=== PATIENT | female | born 1995 | race Hispanic/Latino ===

== ENCOUNTER 2023-08-08 10:32 | Emergency (ER) | payer OTHER ==
[~2023-08-08] VITALS: Ht 154.9 cm; Wt 113.4 kg
[~2023-08-08 10:32] MED LIST: CIPR-278 PO; HYDR-4060 PO; LOPE2CAP PO; ONDA4TAB10 PO
[2023-08-08 11:43] LABS: CREATININE 0.9 mg/dL (0.5-1.5); POTASSIUM 4.1 mmol/L (3.5-5.1)
[2023-08-08 11:45] LABS: BASOPHILS # (AUTO) 0.03 K/uL (0.00-0.20); BASOPHILS % (AUTO) 0.4 % (0.0-5.0); EOSINOPHILS # (AUTO) 0.21 K/uL (0.00-0.70); EOSINOPHILS % (AUTO) 2.5 % (0.0-8.0); HEMATOCRIT 40.9 % (36-48); IMMATURE GRANULOCYTE ABSOLUTE 0.03 K/uL (0-1); LYMPHOCYTES # (AUTO) 1.9 K/uL (1.0-4.8); LYMPHOCYTES % (AUTO) 22.5 % (21.0-51.0); MEAN CORPUSCULAR HEMOGLOBIN 29.2 pg (27.0-33.0); MEAN CORPUSCULAR HGB CONC 33.3 g/dL (32.0-36.0); MEAN CORPUSCULAR VOLUME 87.8 fL (79-99); MONOCYTES # (AUTO) 0.5 K/uL (0.1-1.0); MONOCYTES % (AUTO) 5.7 % (3.0-13.0); NEUTROPHILS # (AUTO) 5.9 K/uL (1.8-7.7); NEUTROPHILS % (AUTO) 68.5 % (40.0-77.0); PLATELET COUNT (AUTO) 227 K/uL (130-400); RED BLOOD CELL COUNT(AUTO) 4.66 MIL/uL (4.00-5.50); RED CELL DISTRIBUTION WIDTH 13.4 % (11.0-15.5); WHITE BLOOD COUNT (AUTO) 8.6 K/uL (4.8-10.8)
[2023-08-08 11:47] LABS: ALBUMIN 3.6 g/dL (3.5-5.0); BILIRUBIN,TOTAL 0.4 mg/dL (0.2-1.0); TOTAL PROTEIN, SERUM 7.5 g/dL (6.0-8.3)
[2023-08-08] MEDS: METOCLOPRAMIDE 10 MG TABLET PO ONE (11:48)
[2023-08-08 12:17] LABS: APPEARANCE,URINE CLEAR (CLEAR); BILIRUBIN,URINE NEGATIVE (NEGATIVE); COLOR,URINE YELLOW (YELLOW); GLUCOSE, URINE (UA) NEGATIVE (NEGATIVE); KETONES,URINE NEGATIVE (NEGATIVE); LEUKOCYTE ESTERASE ,URINE NEGATIVE Leu/uL (NEGATIVE); NITRATE,URINE NEGATIVE (NEGATIVE); OCCULT BLOOD,URINE NEGATIVE (NEGATIVE); PROTEIN,URINE 10 mg/dL (NEGATIVE)
[2023-08-08 12:23] LABS: HCG,QUALITATIVE URINE NEGATIVE (NEGATIVE)
[2023-08-08 12:28] LABS: ADD UA MICROSCOPIC YES
[2023-08-08 12:30] LABS: MUCUS,URINE FEW LPF (None Seen); SQUAMOUS EPITHELIAL CELL,UR RARE /HPF (0-2)
[2023-08-08] MEDS: KETOROLAC 60 MG VIAL (30MG/ML) IM ONE (13:46)
[2023-08-08 14:41] VITALS: BP 133/78; PULSE 78; RESP 18; O2SAT 98
== END 2023-08-08 14:42 | disposition home or self-care (01) ==
LOC: EDH 10:32
DX: K52.9 Noninfective gastroenteritis and colitis, unspecified (principal); J45.909 Unspecified asthma, uncomplicated; F41.9 Anxiety disorder, unspecified; Z90.49 Acquired absence of other specified parts of digestive tract
CPT/HCPCS: 99283; 80053; 83690; 85025; 81001; 81025; 36415; 96372; J1885

== ENCOUNTER 2024-04-26 12:11 | Emergency (ER) | payer OTHER ==
[~2024-04-26] VITALS: Ht 165.1 cm; Wt 90.7 kg
[~2024-04-26 12:11] MED LIST changes: +ONDA-243 PO; -ONDA4TAB10 PO
[2024-04-26 12:27] VITALS: TEMP 98.5
--- NOTE | 2024-04-26 12:31 | ERN ---
ED Note History of Present Illness Stated Complaint: HYPOTENSION Chief Complaint: Hypotension Time Seen by MD: 12:13 Dictation: PATIENT IS A 29-YEAR-OLD FEMALE COMING IN TODAY VIA EMS FROM A LOCAL PLASMA CENTER. SHE WAS DONATING PLASMA WHEN SHE HAD A NEAR SYNCOPAL EPISODE AND FELT WEAK, THE DOCUMENT CONTROLLER ATTEMPTED TO GIVE HER BLOOD BACK HOWEVER THE IV INFILTRATED AND THEY COULD NOT RESTART THE IV. EMS WAS CALLED CURRENTLY SHE IS ALERT AND ORIENTED X4 SPEECH IS CLEAR STATES SHE HAS A MILD NAUSEA., NO HISTORY OF PANIC ATTACKS ANXIETY. SHE IS A DIABETIC, BLOOD SUGAR WAS 228 ACCORDING TO EMS ON ARRIVAL [facility] IS 0 ON A APPROACH. Allergies: Coded Allergies: clonazepam (Unverified Allergy, Unknown, 07/05/22) enoxaparin (Unverified Allergy, Unknown, 07/05/22) ranitidine (Unverified Allergy, Unknown, 07/05/22) Home Meds Active Scripts Hydrocodone/Acetaminophen (Hydrocodon-Acetaminophen 5-325) 1 Each Tablet, 1 EACH PO Q6H for pain, #12 TAB 0 Refills Prov:MELANY ARELLANO MD 07/05/22 Ondansetron (Ondansetron Odt) 4 Mg Tab.rapdis, 4 MG PO Q6HPRN PRN for nausea, #16 TAB 0 Refills Prov:MELANY ARELLANO MD 07/05/22 Loperamide HCl (Loperamide) 2 Mg Capsule, 2 MG PO 5XDAY for diarrhea, #10 CAP 0 Refills Take 2 tablets initially and then 1 tablet with every loose bowel movement. Prov:MELANY ARELLANO MD 07/05/22 Ciprofloxacin HCl (Cipro) 500 Mg Tablet, 1 TAB PO BID for 5 Days, #10 TAB 0 Refills Prov:MELANY ARELLANO MD 07/05/22 Past Medical History Past Medical History: Anxiety, Depression Additional Past Medical Hx: GASTRITIS Surgical History: Other, None Surgical History Other: BILATERAL FEET Family History: Negative Social History: Negative, Lives with family History: Not Applicable RN Note Reviewed/Agreed w/PFSH: Yes Review of System Dictation CONSTITUTIONAL: NEGATIVE EXCEPT FOR HPI WEAKNESS/NEAR-SYNCOPE HEAD/FACE: NEGATIVE EXCEPT FOR HPI EENT: NEGATIVE EXCEPT FOR HPI RESPIRATORY: NEGATIVE EXCEPT FOR HPI GASTROINTESTINAL/ABDOMINAL: NEGATIVE EXCEPT FOR HPI GENITOURINARY: NEGATIVE EXCEPT FOR HPI MUSCULOSKELETAL: NEGATIVE EXCEPT FOR HPI INTEGUMENTARY: NEGATIVE EXCEPT FOR HPI NEUROLOGICAL/PSYCH: NEGATIVE EXCEPT FOR HPI HEMATOLOGIC/LYMPHATIC: NEGATIVE EXCEPT FOR HPI ALL SYSTEMS NEGATIVE, EXCEPT NOTED ABOVE. 13 POINT REVIEW OF SYSTEMS ASSESSED AND ALL NEGATIVE EXCEPT FOR ABOVE. Initial Vital Sign VS Vital Signs Date Time Temp Pulse Resp B/P (MAP) Pulse Ox O2 Delivery O2 Flow Rate FiO2 04/26/24 12:13 98.4 102 16 76/55 98 Room Air 0 04/26/24 12:27 21 Physical Exam Dictation VITAL SIGNS REVIEWED 0/10 PAIN GENERAL APPEARANCE: ALERT, ORIENTED X 3, NO ACUTE DISTRESS, WELL DEVELOPED, NOURISHED. OBESE HEAD AND FACE: NON-TRAUMATIC. EYES: PERRL, PINK CONJUNCTIVAS, EYELID NO TRAUMA, ANTERIOR CHAMBER WITH ARCUS SENILIS. EARS: PINNAS INTACT AND NO SIGNS OF TRAUMA OR ERYTHEMA EAR CANALS CLEAR AND NO DISCHARGE TM NO ERYTHEMA NOSE: NO DISCHARGE, NO BLEEDING. OROPHARYNX: MOUTH NORMAL, TONGUE PINK, PHARYNX CLEAR,NO ERYTHEMA, TONSILS NO EXUDATES, NO ABSCESSES NOTED, MUCOUS MEMBRANE MOIST NECK: SUPPLE, NON-TENDER, NO THYROMEGALY, NO MASSES, NO JVD, NO BRUITS BREAST:DEFERRED CHEST:NO TENDERNESS, NO CREPITUS, NO PARADOXICAL MOVEMENT, NO RETRACTIONS LUNGS:CLEAR, WELL-VENTILATED, SYMMETRIC, NO RALES, NO WHEEZING, NO RHONCHI, NO STRIDOR, GOOD BREATH SOUNDS BILATERALLY HEART: REGULAR RATE, REGULAR RHYTHM, NO MURMUR, NO GALLOPS VASCULAR: NO PERIPHERAL EDEMA, ABDOMEN: SOFT, POSITIVE BOWEL SOUNDS, NONDISTENDED, NO GUARDING, NONTENDER, NO REBOUND, NO MASSES NO HEPATOMEGALY, NO SPLENOMEGALY, NO LONG'S SIGN, NO HERNIAS. NO FOCAL TENDERNESS RECTAL: DEFERRED GENITAL: DEFERRED NEUROLOGICAL: NORMAL SPEECH, MOTOR FUNCTION INTACT, SENSORY FUNCTION INTACT [facility] IS 0 MUSCULOSKELETAL: NECK NONTENDER, FULL RANGE OF MOTION, BACK NONTENDER, FULL RANGE OF MOTION, EXTREMITIES: NONTENDER, FULL RANGE OF MOTION SKIN: COLOR PINK, DRY, NO TURGOR, NO RASH, NO LACERATIONS, NO ABRASIONS, NO CONTUSIONS. LYMPHATIC: DEFERRED Results (Laboratory/Radiology) Laboratory/Radiology Laboratory Tests Test 04/26/24 12:32 White Blood Count 10.4 K/uL (4.8-10.8) Red Blood Count 5.30 MIL/uL (4.00-5.50) Hemoglobin 15.3 g/dL (12.0-16.0) Hematocrit 46.0 % (36-48) Mean Corpuscular Volume 86.8 fL (79-99) Mean Corpuscular Hemoglobin 28.9 pg (27.0-33.0) Mean Corpuscular Hemoglobin Concent 33.3 g/dL (32.0-36.0) Red Cell Distribution Width 13.5 % (11.0-15.5) Platelet Count 253 K/uL (130-400) Mean Platelet Volume 9.5 fL (7.5-10.5) Immature Granulocyte % (Auto) 0.8 % (0-1) Neutrophils (%) (Auto) 58.6 % (40.0-77.0) Lymphocytes (%) (Auto) 34.4 % (21.0-51.0) Monocytes (%) (Auto) 5.0 % (3.0-13.0) Eosinophils (%) (Auto) 0.9 % (0.0-8.0) Basophils (%) (Auto) 0.3 % (0.0-5.0) Neutrophils # (Auto) 6.1 K/uL (1.8-7.7) Lymphocytes # (Auto) 3.6 K/uL (1.0-4.8) Monocytes # (Auto) 0.5 K/uL (0.1-1.0) Eosinophils # (Auto) 0.09 K/uL (0.00-0.70) Basophils # (Auto) 0.03 K/uL (0.00-0.20) Absolute Immature Granulocyte (auto 0.08 K/uL (0-1) Nucleated Red Blood Cells 0.0 % (0.0-0.19) Sodium Level 137 mmol/L (136-145) Potassium Level 4.3 mmol/L (3.5-5.1) Chloride Level 101 mmol/L (101-111) Carbon Dioxide Level 28 mmol/L (21-32) Blood Urea Nitrogen 11 mg/dL (7-18) Creatinine 0.9 mg/dL (0.5-1.0) Glomerular Filtration Rate Calc 89 mL/min (>90) Random Glucose 245 mg/dL (70-105) H Total Calcium 9.1 mg/dL (8.5-10.1) Troponin I High Sensitivity < 4 ng/L (4-50) L Labs Reviewed?: Yes EKG Comment: EKG NORMAL SINUS RHYTHM/HEART RATE 92/AXIS NORMAL/NO ECTOPY ED Course ED Course Orders Procedure Category Date Status Time Cbc With Differential LAB 04/26/24 Complete 12:29 Troponin I High LAB 04/26/24 Complete Sensitivity 12:29 12 Lead Ekg Tracing- EKG 04/26/24 Complete Technical 12:29 0.9%Nacl 1000ml (Ns PHA 04/26/24 Complete 1000ml) 12:30 Ondansetron 4mg Inj PHA 04/26/24 Complete (Zofran 4mg Inj) 12:30 Basic Metabolic Panel LAB 04/26/24 Complete 12:29 Current Medications Medications (Trade) Dose Ordered Sig/Marquita Route PRN Reason Start Time Stop Time Status Last Admin Dose Admin Ondansetron HCl (zoFRAN 4MG INJ) 4 mg ONCE ONCE IVP 04/26/24 12:30 04/26/24 12:31 DC 04/26/24 12:45 Sodium Chloride 1,000 ml @ 0 mls/hr ONCE ONCE IV 04/26/24 12:30 04/26/24 12:31 DC 04/26/24 12:45 Vital Signs Date Time Temp Pulse Resp B/P (MAP) Pulse Ox O2 Delivery O2 Flow Rate FiO2 04/26/24 13:49 92 17 107/60 98 Room Air* 0 21 04/26/24 12:27 98.4 95 18 108/81 98 Room Air* 0 21 04/26/24 12:13 98.4 102 16 76/55 98 Room Air 0 THIRTEEN 40, PATIENT IS HEMODYNAMICALLY STABLE FEELS BETTER AFTER FLUIDS. WE WILL BE DISCHARGED HOME WITH VASOVAGAL NEAR-SYNCOPE, DIABETES WITH HYPERGLYCEM IA. TOLD TO SEE HER PRIMARY CARE DOCTOR IN 1-2 DAYS FOR FOLLOW UP. HEART Score Response (Comments) Value History: Low suspicion (0) 0 EKG: Normal 0 Age: < 45yrs (0) 0 Risk Factors: No known risk factors (0) 0 Total 0 Medical Decision Making MDM MDM: DIFFERENTIAL DIAGNOSIS: ACS/AMI/ELECTROLYTE IMBALANCE/DEHYDRATION/VAGAL VAGAL RESPONSE/HYPOGLYCEMIA RATIONALE: TESTS CONSIDERED AND ORDERED SECONDARY TO SHARED DECISION MAKING INCLUDE: EKG/LABS PREVIOUS OUTSIDE RECORDS REVIEWED: OLD ER VISITS. REVIEWED RISK OF COMPLICATION AND/OR MORBIDITY OR MORTALITY OF PATIENT MANAGEMENT: NONE MEDICATIONS-PER MEDICATION RECONCILIATION SEE NURSE'S NOTES NEED FOR HOSPITALIZATION: PATIENT DOES NOT MEET CRITERIA FOR HOSPITALIZATION. NO NEED FOR EMERGENCY MAJOR/MINOR SURGERY: NO THERE ARE NO SOCIAL CONCERNS WITH THIS PATIENT. PRESCRIPTION DRUG MANAGEMENT NONE PRESCRIPTIONS WILL INCLUDE SYMPTOMATIC CARE PATIENT'S PRIOR EXTERNAL MEDICAL RECORDS FROM OTHER ER VISITS WERE REVIEWED BY ME INDICATED. PRIOR TESTING AND RESULTS FROM PREVIOUS VISITS WERE REVIEWED. PRIOR TESTS WERE TAKEN INTO ACCOUNT WITH MEDICAL DECISION MAKING AND RESOURCE UTILIZATION, INDEPENDENT HISTORIAN/HISTORIANS WERE USED TO OBTAIN COMPLETE MEDICAL HISTORY. I INDEPENDENTLY INTERPRETED THE TEST THAT WERE PERFORMED, RESULTS WERE REVIEWED BY ME AND CONSIDERED FINDINGS ON RADIOLOGY IF ORDERED. MEDICAL MANAGEMENT AND EXAMINATION INTERPRETATION DISCUSSIONS WERE HAD BY ME WITH OTHER QUALIFIED HEALTHCARE PROFESSIONALS INDICATED FOR THE PATIENT'S CARE. DX & DISP Disposition: Discharge Departure Impression: Primary Impression: Vasovagal near syncope Additional Impressions: Uncontrolled diabetes mellitus, Obesity Condition: Stable Additional Instructions: FOLLOW-UP WITH PRIMARY CARE PROVIDER IN 1 TO 2 DAYS. TAKE MEDICATIONS DIRECTED HERE IN THE EMERGENCY ROOM. OKAY TO CONTINUE HOME MEDICATIONS UNLESS OTHERWISE DISCUSSED DURING YOUR VISIT IN THE EMERGENCY ROOM TODAY. RETURN TO YOUR NEAREST EMERGENCY ROOM IF SYMPTOMS WORSEN OR IF THERE IS NO IMPROVEMENT. CALL 911 IF YOU NEED IMMEDIATE ASSISTANCE. TAKE TYLENOL OR MOTRIN [id number] NEEDED AND IF NO CONTRAINDICATIONS ARE PRESENT. INCREASE ORAL HYDRATION. A WOUND CULTURE OR URINE CULTURE WAS ORDERED HERE IN THE EMERGENCY ROOM DEPARTMENT PLEASE FOLLOW-UP WITH PRIMARY CARE PROVIDER AND ADVISE THEM TO GET REPEAT PORTS FROM OUR FACILITY. IF YOU HAD ANY ELOY WRAP/SPLINTS THAT WERE APPLIED HERE, PLEASE DO NOT REMOVE THEM UNTIL YOU SEE YOUR PRIMARY CARE OR SPECIALTY. CONTINUE YOUR MEDICATIONS AND TREATMENTS AT HOME FOR DIABETES, SEE YOUR PRIMARY CARE DOCTOR SUNDAY FOR FOLLOW UP. DO NOT DONATE ANYMORE PLASMA UNTIL CLEARED BY YOUR DOCTOR. Referrals: RANDEE CARBALLO DO (PCP) Time of Disposition: 13:43 ATTESTATION BY PHYSICIAN I PERFORMED THE SUBSTANTIVE PORTION OF THE VISIT. I HAVE REVIEWED AND PERSONALLY MADE AND APPROVED THE MANAGEMENT PLAN THAT IS DOCUMENTED IN THE NOTE BY MYSELF FOR THE A PP. I ACKNOWLEDGED FOR RESPONSIBILITY FOR THE PATIENT'S MANAGEMENT PLAN. I have reviewed the case, and I agree with, Diagnosis and Plan ANCA SAM NP Apr 26, 2024 12:31 SAM CARBALLO MD Apr 26, 2024 18:12
--- NOTE | 2024-04-26 12:40 | EKG ---
[facility] Test Date: 2024-04-26 Test Time: 12:35:37 Pat Name: SHERRI MENJIVAR Department: ED Room: Gender: F Optimization Specialist: [facility] : 1995 Requested By: ANCA SAM Order Number: [id number] Reading MD: Chuy Crandall Measurements Intervals [place] Rate: 94 P: 21 [place]: 142 QRS: 24 QRSD: 85 T: -3 QT: 343 QTc: 429 Interpretive Statements Sinus rhythm No previous ECG available for comparison Electronically Signed On 04-28-2024 19:57:29 COMPLIANCE REVIEWER by Chuy Crandall Please click the below link to view image of tracing.
[2024-04-26 12:41] LABS: BASOPHILS # (AUTO) 0.03 K/uL (0.00-0.20); BASOPHILS % (AUTO) 0.3 % (0.0-5.0); EOSINOPHILS # (AUTO) 0.09 K/uL (0.00-0.70); EOSINOPHILS % (AUTO) 0.9 % (0.0-8.0); IMMATURE GRANULOCYTE ABSOLUTE 0.08 K/uL (0-1); LYMPHOCYTES # (AUTO) 3.6 K/uL (1.0-4.8); LYMPHOCYTES % (AUTO) 34.4 % (21.0-51.0); MEAN CORPUSCULAR HEMOGLOBIN 28.9 pg (27.0-33.0); MEAN CORPUSCULAR HGB CONC 33.3 g/dL (32.0-36.0); MEAN CORPUSCULAR VOLUME 86.8 fL (79-99); MONOCYTES # (AUTO) 0.5 K/uL (0.1-1.0); NEUTROPHILS # (AUTO) 6.1 K/uL (1.8-7.7); NEUTROPHILS % (AUTO) 58.6 % (40.0-77.0); PLATELET COUNT (AUTO) 253 K/uL (130-400); RED CELL DISTRIBUTION WIDTH 13.5 % (11.0-15.5); WHITE BLOOD COUNT (AUTO) 10.4 K/uL (4.8-10.8)
[2024-04-26] MEDS: ondanSETRON 4MG INJ IVP ONE (12:45)
[2024-04-26] MEDS: 0.9%NACL 1000ML 1,000 ML IV ONE (12:45)
[2024-04-26 12:56] LABS: CREATININE 0.9 mg/dL (0.5-1.0); POTASSIUM 4.3 mmol/L (3.5-5.1)
[2024-04-26 13:49] VITALS: BP 107/60; PULSE 92; RESP 17; O2SAT 98
== END 2024-04-26 14:22 | disposition home or self-care (01) ==
LOC: EDH 12:11
DX: R55 Syncope and collapse (principal); E11.65 Type 2 diabetes mellitus with hyperglycemia; E66.9 Obesity, unspecified; Z68.33 Body mass index [BMI] 33.0-33.9, adult
CPT/HCPCS: 99284; 96374; 96361; 84484; 80048; 85025; 36415; 93005; J7030; J2405